=== PATIENT | male | born 1985 | race Caucasian/White ===

== ENCOUNTER 2020-08-11 07:15 | Outpatient (REF) | payer OTHER, SELFPAY | END 2020-08-11 07:16 | disposition home or self-care (01) | LOC: HO.LAB 07:15 | PROVIDERS: PCP Nurse Practitioner Family; Visit Provider Internal Medicine | DX: Z20.828 Contact with and (suspected) exposure to other viral communicable diseases (principal) | CPT/HCPCS: C9803; U0003 ==

== ENCOUNTER 2020-08-28 06:41 | Outpatient (REF) | payer OTHER, SELFPAY | END 2020-08-28 06:42 | disposition home or self-care (01) | LOC: HO.LAB 06:41 | PROVIDERS: Visit Provider Internal Medicine | DX: Z20.822 Contact with and (suspected) exposure to COVID-19 (principal) | CPT/HCPCS: 36415; C9803; U0003 ==

== ENCOUNTER 2020-11-13 07:39 | Outpatient (REF) | payer OTHER, SELFPAY ==
[2020-11-13 13:29] LABS: SARS COV2 PCR INHOUSE NEGATIVE (Negative)
== END 2020-11-13 07:40 | disposition home or self-care (01) ==
LOC: HO.LAB 07:39
PROVIDERS: Visit Provider Internal Medicine
DX: Z20.822 Contact with and (suspected) exposure to COVID-19 (principal)
CPT/HCPCS: C9803; U0003

== ENCOUNTER 2021-04-15 07:27 | Outpatient (REF) | payer OTHER, SELFPAY ==
[2021-04-15 07:59] LABS: COVID-19 Test Negative (Negative)
== END 2021-04-15 07:28 | disposition home or self-care (01) ==
LOC: HO.LAB 07:27
PROVIDERS: PCP Nurse Practitioner Family; Visit Provider Internal Medicine
DX: Z20.822 Contact with and (suspected) exposure to COVID-19 (principal)
CPT/HCPCS: 36415; 87635

== ENCOUNTER 2021-04-29 11:30 | Outpatient (REF) | payer OTHER, SELFPAY ==
[2021-04-29 13:56] LABS: COVID-19 Test Negative (Negative)
== END 2021-04-29 11:31 | disposition home or self-care (01) ==
LOC: HO.LAB 11:30
PROVIDERS: PCP Nurse Practitioner Family; Visit Provider Internal Medicine
DX: Z20.822 Contact with and (suspected) exposure to COVID-19 (principal)
CPT/HCPCS: 36415; 87635; C9803